=== PATIENT | female | born 1940 | race African-American/Black ===

== ENCOUNTER → 2016-07-20 | Outpatient (CLI) | payer OTHER ==
[~2016-07-20] VITALS: Ht 160 cm; Wt 58.1 kg
[~2016-07-20] MED LIST: AMITRIPTYLINE H10 M3; ANASPAZ0.125 MG SL; ATIVAN0.5 MG PO; ATORVASTATIN CA10 MG PO; CENTRUM SILVER1 EAC4 PO; COUMADIN6 MG PO; HYDROCODON-ACET15 ML PO; LANTUS SUBQ; LEVEMIR SUBQ; LEVOXYL75 MCG PO; MICARDIS 80 MG80 MG PO; NORCO 5-325 TA1 EACH PO; NORVASC10 MG PO; NOVOLOG100 UNIT/1 SUBQ; PERCOCET; PRILOSEC 20 MG20 MG PO; QUESTRAN PACKET4 GM PO; REGLAN 10 MG TA10 M1 PO; SERTRALINE HCL50 MG PO; TRAMADOL 50 MG50 MG; ZOFRAN 4 MG ORAL4 MG PO; ZOFRAN ODT4 MG PO; ZOFRAN4 MG PO
--- NOTE | ~2016-07-20 | P ---
[facility] [place] [address] PROCEDURE REPORT Name: GALINDOTYE Room #: GOPAL COLES Narayan#: [id number] Admission: 07/20/16 Attend Phys: Oscar Lr Discharge: Date of : 44 Report #: [id number] THIS REPORT FOR: //name// CC: Oscar Adams DATE OF SERVICE: 07/20/2016 PROCEDURE PERFORMED: Colonoscopy with biopsies. HISTORY OF PRESENT ILLNESS: The patient is a 76-year-old female with abdominal pain and mild weight loss. She had an extensive workup. 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 Plan is for EGD and colonoscopy today. EGD was just performed, which showed mild gastritis. DESCRIPTION OF PROCEDURE: The risks and benefits of the procedure were explained to the patient. Those risks including but not limited to bleeding, perforation, and the risk of sedation. She understood these risks and gave informed consent. Sedation was given using propofol per anesthesia. Next, a digital rectal exam was initially performed, which was normal. Next, using a standard Fujinon colonoscope, the scope was placed in the patient's anus and advanced under direct vision to the right colon, at which point, the ileocolonic anastomosis was noted. The patient has had a previous right hemicolectomy. The anastomosis was widely patent and well healed. I was able to advance the scope into the terminal ileum, which was normal. The scope was then slowly withdrawn. The remaining transverse and descending colon were normal. Multiple small diverticula were noted in the sigmoid colon, no evidence of inflammation. Also noted was a 5 mm sessile polyp. This was removed with cold forceps. The rectal mucosa was normal. On retroflexion, small nonbleeding internal hemorrhoids were noted. Otherwise normal colonoscopy. The scope was then withdrawn and the procedure terminated. The patient tolerated the procedure well. IMPRESSION: 1. Small colonic polyp. 2. Surgical anastomosis noted in the right colon, widely patent. 3. Sigmoid diverticulosis. 4. Internal hemorrhoids. RECOMMENDATIONS: 1. Await biopsy results. 2. If polyp is hyperplastic, repeat in 10 years; if adenomatous polyp, repeat in 5 years. 3. Etiology of abdominal pain and symptoms is unclear. The patient has had a previous partial pancreatectomy. Recent CT scan shows no other pancreatic abnormality. She has already had a previous cholecystectomy. Endoscopies today [facility] [address] [place] [address] PROCEDURE REPORT Name: TYE MEDLEY Room #: GOPAL Busch#: [id number] Admission: 07/20/16 Attend Phys: Oscar Lr Discharge: Date of : 44 Report #: [id number] were essentially negative, we will need to await biopsy results. She has had a delayed gastric emptying time in the past. We discussed revisiting [place]. If the patient obviously has side effects, she needs to discontinue the medication. She understands this. If this is not helpful, we may consider a trial of pancreatic enzymes. She has already tried erythromycin without any benefit. Thank you for allowing me to participate in her care. By: [id number] Oscar Vizcarra MD /nt
--- NOTE | ~2016-07-20 | P ---
[facility] [address] [place] [address] PROCEDURE REPORT Name: GALINDOTYE Room #: GOPAL MONTOYACliff Busch#: [id number] Admission: 07/20/16 Attend Phys: Oscar Lr Discharge: Date of : 44 Report #: [id number] THIS REPORT FOR: //name// CC: Oscar Adams DATE OF SERVICE: 07/20/2016 PROCEDURE PERFORMED: Upper endoscopy with biopsies. HISTORY OF PRESENT ILLNESS: The patient is a 75-year-old female with abdominal pain both before and after eating. 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 We tried several different medications. She had a CT scan of the abdomen and pelvis at [facility] in May of this year, which showed surgical changes and constipation changes, but otherwise was basically unremarkable. She has a previous history of delayed gastric emptying study, also a history of diabetes, tried Reglan in the past, with possible side effects. She is unsure. We tried erythromycin after her visit last year, which was not helpful. She states weight loss of approximately 5 pounds over the last month. She has had an ultrasound with Do[facility] showing no evidence of stenosis. Plan is for EGD and colonoscopy today. DESCRIPTION OF PROCEDURE: The risks and benefits of the procedure were explained to the patient, those risks including but not limited to bleeding, perforation, and the risk of sedation. She understood these risks and gave informed consent. Sedation was given using propofol per anesthesia. Next, using a standard Fujinon upper endoscope, the scope was placed in the patient's mouth and advanced under direct vision through the esophagus, stomach, and into the second portion of the duodenum. The larynx was normal in appearance. The esophagus was normal throughout. The GE junction was normal. In the stomach, there was a mild gastritis noted in the mid body. No evidence of ulcerations or erosions. No food residual was noted. Biopsies were obtained to rule out H. pylori. The pylorus was normal and patent. The duodenal bulb, first and second portion were all normal. Biopsies of the second portion of the duodenum were also obtained to rule out the possibility of celiac sprue. The scope was then withdrawn, and the procedure terminated. The patient tolerated the procedure well. IMPRESSION: 1. Mild gastritis. 2. Otherwise, normal upper endoscopy. RECOMMENDATIONS: 1. Await biopsy results. [address] [address] PROCEDURE REPORT Name: TYE MEDLEY Room #: REG CLCliff Busch#: [id number] Admission: 07/20/16 Attend Phys: Oscar Lr Discharge: Date of : 44 Report #: [id number] 2. We will proceed with colonoscopy next today. Thank you for allowing me to participate in her care. By: [id number] Oscar Vizcarra MD /nt
--- NOTE | ~2016-07-20 | S ---
[facility] [place] [address] SURGICAL PATH RPT PROCEDURE Name: DANITA BANUELOSYesenia Room #: REG SANKET Ferreira.#: [id number] Admission: 07/20/16 Date of : 44 Discharge: Report #: [id number] Path Case #: [id number] PATHOLOGY REPORT COLLECTION DATE: 07/20/2016 RECEIVED DATE: 07/21/2016 SUBMITTING PHYS: Dr. Oscar Vizcarra OTHER PHYS: Dr. Dayna Bradshaw SPECIMEN(S) RECEIVED: A.Duodenal bx B.Gastritis C.Sigmoid colon polyp bx * * * * * * * * * * * * FINAL DIAGNOSIS: A. "Duodenal bx," biopsy: - Small bowel/duodenal mucosa with minimal histologic alterations; no evidence of celiac sprue. B. "Gastritis," biopsy: - Gastric mucosa with reactive changes and mild chronic inflammation. - Negative H. pylori immunohistochemical stain (block B1); control reacted appropriately. C. "Sigmoid colon polyp bx," biopsy: - Tubular adenoma; no high-grade dysplasia. (CLW:; d/t: 07/22/16) PATHOLOGIST: Isabelle Inman M.D. REPORT ELECTRONICALLY SIGNED BY: Isabelle Inman M.D. DATE/TIME: 07/22/2016 22:24 * * * * * * * * * * * * GROSS PATHOLOGY: A. Received in formalin labeled "Danita Banuelosyesenia, duodenal BX," are 4 segments of alan soft tissue measuring 1.0 x 0.2 x 0.2 cm in aggregate dimensions and ranging from 0.2 to 0.3 cm in maximum dimension. The specimen is submitted entirely in cassette A1. B. Received in formalin labeled " Tye Banuelos, gastric," are 4 segments of alan soft tissue measuring 1.5 x 0.3 x 0.2 cm in aggregate dimensions and ranging from 0.2 to 0.5 cm in maximum dimension. The specimen is submitted entirely in cassette B1. C. Received in formalin labeled " Tye Banuelos, sigmoid colon polyp," is a segment of alan soft tissue measuring 0.4 x 0.3 x 0.2 cm in maximum dimension. The specimen is submitted entirely in cassette C1. (KEITH; 07/21/2016) [address] [address] SURGICAL PATH RPT PROCEDURE Name: TYE BANUELOS Room #: REG [facility].#: [id number] Admission: 07/20/16 Date of : 44 Discharge: Report #: [id number] Path Case #: [id number] CLINICAL HISTORY: Abdominal pain INITIAL CPT CODE(S): A; 19683 B; 87494, 78313 C; 71292 Professional services performed by [facility] at [address] , [place] [address] Technical services performed by [facility] at [address] [place] [address], [address] [address]. [facility] [address] [address] PHONE: [phone] DIRECTOR: Rob Sung M.D. * * * END OF REPORT * * *
== END | disposition home or self-care (01) ==
LOC: GI 07:40
DX: D12.5 Benign neoplasm of sigmoid colon (principal); K29.50 Unspecified chronic gastritis without bleeding; K57.30 Diverticulosis of large intestine without perforation or abscess without bleeding; K64.8 Other hemorrhoids; I10 Essential (primary) hypertension; E11.9 Type 2 diabetes mellitus without complications; K21.9 Gastro-esophageal reflux disease without esophagitis; E78.00 Pure hypercholesterolemia, unspecified; F41.9 Anxiety disorder, unspecified; F32.9 Major depressive disorder, single episode, unspecified; G47.33 Obstructive sleep apnea (adult) (pediatric); Z79.4 Long term (current) use of insulin; Z90.49 Acquired absence of other specified parts of digestive tract; Z96.651 Presence of right artificial knee joint; Z90.710 Acquired absence of both cervix and uterus
CPT/HCPCS: 62110; 62900

== ENCOUNTER → 2018-12-03 | Outpatient (CLI) | payer OTHER | LOC: CAT 11:02 | DX: R51 Headache (principal); Z86.73 Personal history of transient ischemic attack (TIA), and cerebral infarction without residual deficits ==